=== PATIENT | female | born 1950 | race Caucasian/White ===

== ENCOUNTER 2018-11-13 20:46 | Inpatient (IN) | payer MEDICARE, MEDICAID ==
[~2018-11-13] VITALS: Ht 165.1 cm; Wt 55.9 kg
[2018-11-13] MEDS ORDERED: normal saline 1000ML IV soln IVB ONE (23:20)
--- NOTE | 2018-11-13 23:35 | NUR ---
PT TO CT
[2018-11-13 23:57] LABS: PARTIAL THROMBOPLASTIN TIME 26 SECONDS (22-32)
[2018-11-13 23:58] LABS: ALANINE AMINOTRANSFERASE 44 U/L (12-78); ALBUMIN 3.6 G/DL (3.4-5.0); ALBUMIN/GLOBULIN RATIO 0.8 (1.1-1.5); ALKALINE PHOSPHATASE 94 IU/L (46-116); ANION GAP 14 (8-16); ASPARTATE AMINO TRANSFERASE 65 U/L (10-37); BILIRUBIN,TOTAL 1.8 MG/DL (0.1-1.0); BLOOD UREA NITROGEN 29 MG/DL (7-18); BUN/CREATININE RATIO 32.6 (6.6-38.0); CALCIUM 8.7 MG/DL (8.5-10.1); CHLORIDE 106 MMOL/L (99-107); CREATININE 0.89 MG/DL (0.40-0.90); GLUCOSE 120 MG/DL (70-104); POTASSIUM 3.3 MMOL/L (3.5-5.1); SODIUM 142 MMOL/L (135-145); TOTAL CARBON DIOXIDE 21.9 MMOL/L (24-32); eGFR 63 ML/MIN
[2018-11-14 00:08] LABS: MAGNESIUM 2.4 MG/DL (1.5-2.4)
[2018-11-14 00:37] LABS: BASOPHILS # (AUTO) 0.1 X10'3 (0-0.2); BASOPHILS % (AUTO) 0.5 % (0-1); EOSINOPHILS % (AUTO) 0 % (0-6); HEMATOCRIT 41.8 % (35.0-45.0); HEMOGLOBIN 14.8 g/dl (12.0-16.0); LYMPHOCYTES # (AUTO) 0.8 X10'3 (1.1-4.8); LYMPHOCYTES % (AUTO) 7.2 % (21-51); MEAN CORPUSCULAR HEMOGLOBIN 32.3 PG (27.0-31.0); MEAN CORPUSCULAR HGB CONC 35.5 g/dL (33.0-36.5); MEAN PLATELET VOLUME 9.7 FL (7.4-10.4); MONOCYTES # (AUTO) 0.6 X10'3 (0-0.9); MONOCYTES % (AUTO) 5.6 % (2-12); NEUTROPHILS # (AUTO) 9.1 X10'3 (1.8-7.7); NEUTROPHILS % (AUTO) 86.7 % (42-75); PLATELET COUNT 165 X10'3 (140-440); RED BLOOD COUNT 4.59 X10'6 (4.20-5.60); RED CELL DISTRIBUTION WIDTH 12.7 % (11.5-14.5); WHITE BLOOD COUNT 10.5 X10'3 (4.5-11.0)
[2018-11-14 00:45] LABS: CLARITY,URINE SLIGHTLY CLOUDY (Clear); COLOR,URINE AMBER (Yellow); GLUCOSE, URINE NEGATIVE (Neg); KETONES,URINE 15 mg/dl (Neg); LEUKOCYTE ESTERASE ,URINE NEGATIVE (Neg); NITRITES, URINE NEGATIVE (Neg); OCCULT BLOOD,URINE MODERATE (Neg); PROTEIN,URINE 100 mg/dl (Neg); UA COLLECTION TYPE CLN CATCH MIDSTREAM
[2018-11-14 01:03] LABS: MUCUS STRANDS MANY /LPF (Neg); SQUAMOUS EPITHELIAL CELL,UR FEW /LPF (FEW)
[2018-11-14 01:05] LABS: BACTERIA,URINE NONE SEEN /HPF (Neg); WBC,URINE 0-4 /HPF (0-4)
[2018-11-14] MEDS ORDERED: potassium Cl 20 mEq SR tablet PO PRN (02:10)
[2018-11-14] MEDS ORDERED: magnesium 4gm in 100ml NS 100 ML IV PRN (02:10)
[2018-11-14] MEDS ORDERED: magnesium Cl slow-release 64mg tablet PO PRN (02:10)
[2018-11-14] MEDS ORDERED: ondansetron/PF 4mg/2ml inj IV PRN (02:10)
[2018-11-14] MEDS ORDERED: potassium CL 10mEq/100ml bag 100 ML IV PRN ×2 (02:10)
[2018-11-14] MEDS ORDERED: magnesium 2GM in 50ml NS 50 ML IV PRN (02:10)
[2018-11-14] MEDS: normal saline 1000ml 1,000 ML IV SCH ×2 (02:21→23:56)
--- NOTE | 2018-11-14 04:00 | NUR ---
I have received report from Yoni WONG and had the opportunity to ask questions and assume patient care.
[2018-11-14 04:30] VITALS: BP 114/61
--- NOTE | 2018-11-14 06:38 | NUR ---
Problems reprioritized. Patient report given, questions answered & plan of care reviewed with Yessica WONG.
[2018-11-14 06:50] VITALS: BP 114/61
[2018-11-14] MEDS ORDERED: NO HOME MEDS (07:24)
[2018-11-14] MEDS: K and/or MAG REPLACEMENT MC SCH (07:37)
[2018-11-14] MEDS: potassium Cl 20 mEq SR tablet PO PRN ×3 (07:47→23:39)
[2018-11-14 10:40] VITALS: BP 111/53
[2018-11-14] MEDS ORDERED: LORazepam 1 MG tablet PO ONE (11:10)
[2018-11-14 18:00] VITALS: BP 97/47
--- NOTE | 2018-11-14 18:30 | NUR ---
Patient in room [facility] 4021. I have received report from brad Juan and had the opportunity to ask questions and assume patient care.
[2018-11-14 20:00] VITALS: BP 102/47
[2018-11-15] MEDS ORDERED: morphine 2 MG/ML inj. syringe IV PRN (05:35)
--- NOTE | 2018-11-15 05:38 | NUR ---
[address]21a TISHA GRECO 68 HERE FOR STROKE, WHO HAS COMOPRESSION FX ON BACK, DOESN'T HAVE ANY PAIN MEDICATIONS. 01/27 PAIN NOW. CAN YOU ORDER PAIN MED? DR. ANSARI ORDERED MORPHINE 05MG Q6HR PRN.
[2018-11-15 06:00] VITALS: BP 100/48
--- NOTE | 2018-11-15 06:22 | NUR ---
received report from brad levin
--- NOTE | 2018-11-15 06:25 | NUR ---
Problems reprioritized. Patient report given, questions answered & plan of care reviewed with MARVIN LAY.
[2018-11-15 07:05] LABS: BASOPHILS % (AUTO) 0.4 % (0-1); EOSINOPHILS # (AUTO) 0.1 X10'3 (0-0.9); EOSINOPHILS % (AUTO) 1.2 % (0-6); HEMATOCRIT 37.9 % (35.0-45.0); HEMOGLOBIN 13.1 g/dl (12.0-16.0); LYMPHOCYTES # (AUTO) 1.2 X10'3 (1.1-4.8); LYMPHOCYTES % (AUTO) 16.4 % (21-51); MEAN CORPUSCULAR HGB CONC 34.6 g/dL (33.0-36.5); MEAN CORPUSCULAR VOLUME 92.6 FL (78-98); MEAN PLATELET VOLUME 9.2 FL (7.4-10.4); MONOCYTES # (AUTO) 0.7 X10'3 (0-0.9); MONOCYTES % (AUTO) 8.8 % (2-12); NEUTROPHILS # (AUTO) 5.5 X10'3 (1.8-7.7); NEUTROPHILS % (AUTO) 73.2 % (42-75); PLATELET COUNT 143 X10'3 (140-440); RED CELL DISTRIBUTION WIDTH 12.8 % (11.5-14.5); WHITE BLOOD COUNT 7.6 X10'3 (4.5-11.0)
[2018-11-15 07:18] LABS: ALBUMIN 2.7 G/DL (3.4-5.0); ANION GAP 10 (8-16); BLOOD UREA NITROGEN 19 MG/DL (7-18); BUN/CREATININE RATIO 31.7 (6.6-38.0); CHLORIDE 109 MMOL/L (99-107); CHOL/HDL RATIO 3.1 (0.00-4.99); CHOLESTEROL 154 MG/DL (0-200); GLUCOSE 91 MG/DL (70-104); HDL CHOLESTEROL 49 MG/DL (35-60); LDL CHOLESTEROL 96 MG/DL (50-100); POTASSIUM 3.7 MMOL/L (3.5-5.1); SODIUM 141 MMOL/L (135-145); TRIGLYCERIDES 58 MG/DL (20-135); eGFR > 90 ML/MIN
[2018-11-15] MEDS: enoxaparin 40mg/0.4ml syringe SUBCUT SCH (07:20)
[2018-11-15] MEDS ORDERED: LORazepam 1 MG tablet PO ONE (07:40)
[2018-11-15] MEDS: K and/or MAG REPLACEMENT MC SCH (07:45)
[2018-11-15] MEDS: oxyCODONE/APAP 5-325mg tablet PO PRN ×3 (09:00→18:01)
[2018-11-15 10:00] VITALS: BP 102/38
[2018-11-15] MEDS: normal saline 1000ml 1,000 ML IV SCH (12:49)
--- NOTE | 2018-11-15 17:40 | NUR ---
WHEN PATIENT CAME INTO HOSPITAL SHE TOLD NURSING STAFF THAT SHE HAD AN UNOPENED BLISTER ON HER BUTTOCK FROM A FALL AT HOME, OVERUSE OF THE BEDPAN ALONG WITH REFUSING TO GET UP OUT OF BED HER BLISTER OPENED, THEREFORE, NURSING STAFF TOOK PIC OF OPEN BLISTER AND PLACED FOAM OVER BLISTER SITE, CDI, CONTINUE TO MONITOR
--- NOTE | 2018-11-15 18:08 | NUR ---
GAVE REPORT TO MARVIN BECKER
[2018-11-15 18:10] VITALS: BP 121/67
[2018-11-15 22:00] VITALS: BP 119/65
[2018-11-16 06:00] VITALS: BP 119/57
--- NOTE | 2018-11-16 06:20 | NUR ---
received report from brad arora
[2018-11-16 06:25] LABS: BASOPHILS % (AUTO) 0.6 % (0-1); EOSINOPHILS # (AUTO) 0.1 X10'3 (0-0.9); EOSINOPHILS % (AUTO) 0.9 % (0-6); HEMATOCRIT 36.8 % (35.0-45.0); HEMOGLOBIN 12.8 g/dl (12.0-16.0); LYMPHOCYTES # (AUTO) 1.1 X10'3 (1.1-4.8); LYMPHOCYTES % (AUTO) 15.9 % (21-51); MEAN CORPUSCULAR HEMOGLOBIN 31.8 PG (27.0-31.0); MEAN CORPUSCULAR HGB CONC 34.9 g/dL (33.0-36.5); MEAN CORPUSCULAR VOLUME 91.1 FL (78-98); MEAN PLATELET VOLUME 9.8 FL (7.4-10.4); MONOCYTES # (AUTO) 0.5 X10'3 (0-0.9); MONOCYTES % (AUTO) 8.1 % (2-12); NEUTROPHILS % (AUTO) 74.5 % (42-75); PLATELET COUNT 156 X10'3 (140-440); RED BLOOD COUNT 4.04 X10'6 (4.20-5.60); RED CELL DISTRIBUTION WIDTH 12.4 % (11.5-14.5); WHITE BLOOD COUNT 6.7 X10'3 (4.5-11.0)
--- NOTE | 2018-11-16 06:26 | NUR ---
report given to brad Kelly.
[2018-11-16 06:37] LABS: ALBUMIN 2.7 G/DL (3.4-5.0); ANION GAP 10 (8-16); BLOOD UREA NITROGEN 8 MG/DL (7-18); BUN/CREATININE RATIO 13.3 (6.6-38.0); CALCIUM 8.2 MG/DL (8.5-10.1); CHLORIDE 107 MMOL/L (99-107); GLUCOSE 97 MG/DL (70-104); MAGNESIUM 1.8 MG/DL (1.5-2.4); POTASSIUM 3.4 MMOL/L (3.5-5.1); SODIUM 140 MMOL/L (135-145); TOTAL CARBON DIOXIDE 23.1 MMOL/L (24-32); eGFR > 90 ML/MIN
[2018-11-16] MEDS: oxyCODONE/APAP 5-325mg tablet PO PRN ×2 (06:51→12:39)
[2018-11-16] MEDS: enoxaparin 40mg/0.4ml syringe SUBCUT SCH (06:53)
[2018-11-16] MEDS: normal saline 1000ml 1,000 ML IV SCH ×2 (06:55→07:17)
[2018-11-16] MEDS: K and/or MAG REPLACEMENT MC SCH (06:55)
[2018-11-16] MEDS: potassium Cl 20 mEq SR tablet PO PRN ×2 (07:16→12:54)
[2018-11-16 10:00] VITALS: BP 110/50
[2018-11-16] MEDS ORDERED: POTA20TA10 PO (13:49)
--- NOTE | 2018-11-16 17:00 | NUR ---
pt d/c with instructions, understanding of instructions and w/all belongings in wheelchair accompanied by nursing staff to be wheeled down to cab to go home and f/u w/pcp pt refused to take her d/c papers with her when she left
== END 2018-11-16 17:13 | disposition home or self-care (01) | DRG 923 ==
LOC: ER 20:46 → ORTHO 4S 11-14 06:14 → CMPBEDREQ 11-15 20:25
PROVIDERS: ADMIT Internal Medicine; ATTEND Family Medicine
DX: T67.0XXA Heatstroke and sunstroke, initial encounter (principal); S32.010A Wedge compression fracture of first lumbar vertebra, initial encounter for closed fracture; E87.6 Hypokalemia; E86.0 Dehydration; M54.2 Cervicalgia; S80.212A Abrasion, left knee, initial encounter; R29.890 Loss of height; M54.30 Sciatica, unspecified side; W18.39XA Other fall on same level, initial encounter; R29.6 Repeated falls; Z91.81 History of falling; Z86.73 Personal history of transient ischemic attack (TIA), and cerebral infarction without residual deficits; Y93.89 Activity, other specified; Y92.830 Public park as the place of occurrence of the external cause; Y99.8 Other external cause status; Z88.5 Allergy status to narcotic agent; Z59.0 Homelessness
CPT/HCPCS: 36415; 70450; 70551; 71045; 72131; 72148; 72170; 80048; 80053; 80061; 81001; 83735; 84443; 84484; 85025; 85610; 85730; 87081; 93005; 93306; 93880; 96360; 97110; 97116; 97161; 97530; 99285; G0378; J1650; J2270; J7030